=== PATIENT | male | born 1955 | race Caucasian/White ===

== ENCOUNTER 2018-05-25 21:21 | Emergency (ER) | payer BC ==
[~2018-05-25] VITALS: Ht 170.2 cm; Wt 99.8 kg
[~2018-05-25 21:21] MED LIST: ASPI-482 PO; DAPA5TAB PO; METF500T PO; METF500T16 PO; OMEG1CAP6 PO; insulin pump; lisinopril
[2018-05-25 21:30] VITALS: BP 127/77
--- NOTE | 2018-05-25 21:32 | ED.ADGEN ---
Past History Past Medical History: Diabetes, Gallstones, Hypertension Past Surgical History: Cholecystectomy, Other Alcohol Use: Occasionally Drug Use: None Adult General Chief Complaint Chief Complaint ".. I was playing dodge ball with kids... and I felt something tear in my Rt. 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 Pt. is able to do straight leg lift off right leg however has edema in pain with any movement of right knee. Patient does have crepitation with range of motion. Patient distal neurovascular is equal to his left foot. No other upper leg or lower leg injury. Pt. does have a history of diabetes. Patient normally follows Dr. Estrada. Review of Systems Review of Systems Constitutional: Denies fever or chills [] Eyes: Denies change in visual acuity, redness, or eye pain [] HENT: Denies nasal congestion or sore throat [] Respiratory: Denies cough or shortness of breath [] Cardiovascular: No additional information not addressed in HPI [] GI: Denies abdominal pain, nausea, vomiting, bloody stools or diarrhea [] : Denies dysuria or hematuria [] Musculoskeletal: Denies back pain or joint pain []except findings in right hand per history of present illness Integument: Denies rash or skin lesions [] Neurologic: Denies headache, focal weakness or sensory changes [] Endocrine: Denies polyuria or polydipsia [] All other systems were reviewed and found to be within normal limits, except as documented in this note. Family History Family History DM Current Medications Current Medications Current Medications Medications (Trade) Dose Ordered Sig/Sherwin Start Time Stop Time Status Last Admin Dose Admin Hydrocodone Bitartrate/ Ibuprofen (Vicoprofen 7.5-200) 2 tab 1X ONCE 05/25/18 22:00 05/25/18 22:01 DC 05/25/18 23:28 2 TAB Allergies Allergies Allergies Coded Allergies Type Severity Reaction Last Updated Verified No Known Drug Allergies 05/25/18 No Physical Exam Physical Exam Constitutional: Moderately acute distress, non-toxic appearance. [] HENT: Normocephalic, atraumatic, bilateral external ears normal, oropharynx moist, no oral exudates, nose normal. [] Eyes: PERRLA, EOMI, conjunctiva normal, no discharge. [] Neck: Normal range of motion, no tenderness, supple, no stridor. [] Cardiovascular:Heart rate regular rhythm, no murmur [] Lungs & Thorax: Bilateral breath sounds clear to auscultation [] Abdomen: Bowel sounds normal, soft, no tenderness, no masses, no pulsatile masses. Obese. Old scar. Skin: Warm, dry, no erythema, no rash. [] Back: No tenderness, no CVA tenderness. [] Extremities: Right knee tenderness, no cyanosis, no clubbing, ROM with crepitation limited because of pain in right knee, right knee edema. [] Neurologic: Alert and oriented X 3, normal motor function, normal sensory function, no focal deficits noted. [] Psychologic: Affect anxious, judgement normal, mood normal. [] Current Patient Data Vital Signs Vital Signs Date Time Temp Pulse Resp B/P (MAP) Pulse Ox O2 Delivery O2 Flow Rate FiO2 05/25/18 21:30 98.2 107 20 96 Room Air EKG EKG [] Radiology/Procedures Radiology/Procedures I interpretation of right knee film shows no obvious fracture dislocation. There is edema.[] Course & Med Decision Making Course & Med Decision Making Pertinent Labs and Imaging studies reviewed. (See chart for details). Patient to use ice packs as needed for the next 2 or 3 days. Rest. Wear splint and use crutches. Will need follow-up orthopedics. Recommend follow-up primary care. Patient may need arthroscopic as well as MRI to fully evaluate his right knee dysfunction. Tylenol and ibuprofen for pain for marked pain may use Vicoprofen up 4 times a day. Patient return if any concerns. [] Final Impression Final Impression 1. Cartilage Injury Rt. Knee 2. Hx. of DM[] Dragon Disclaimer Dragon Disclaimer This electronic medical record was generated, in whole or in part, using a voice recognition dictation system. Discharge Summary Visit Information Final Diagnosis Problems Medical Problems: (1) Knee cartilage, torn, right Status: Acute Brief Hospital Course Allergies Allergies Coded Allergies Type Severity Reaction Last Updated Verified No Known Drug Allergies 05/25/18 No Vital Signs Vital Signs Date Time Temp Pulse Resp B/P (MAP) Pulse Ox O2 Delivery O2 Flow Rate FiO2 05/25/18 21:30 98.2 107 20 96 Room Air Brief Hospital Course Mr. Velasquez is a 62 old male who presented with Rt. Knee Injury. Discharge Information Condition at Discharge: Improved Dischare Medications Current Medications Hydrocodone Bitartrate/ Ibuprofen (Vicoprofen 7.5-200) 2 tab 1X ONCE PO Last administered on 05/25/18at 23:28; Admin Dose 2 TAB; Start 05/25/18 at 22:00; Stop 05/25/18 at 22:01; Status DC Active Scripts Active Hydrocodone-Ibuprofen 7.5-200 (Hydrocodone/Ibuprofen) 1 Each Tablet 1 Tab PO PRN Q6HRS PRN Reported Farxiga (Dapagliflozin Propanediol) 5 Mg Tablet 5 Mg PO DAILY [lisinopril] [insulin pump] Fish Oil 1,000 Mg Capsule ([place]-3 Fatty Acids/Fish Oil) 1 Each Capsule 1 Each PO Aspir 81 (Aspirin) 81 Mg Tablet.dr 1 Tab PO DAILY Glucophage (Metformin Hcl) 500 Mg Tablet 1 Tab PO BID Discharge Summary Visit Information Final Diagnosis Problems Medical Problems: (1) Knee cartilage, torn, right Status: Acute Brief Hospital Course Allergies Allergies Coded Allergies Type Severity Reaction Last Updated Verified No Known Drug Allergies 05/25/18 No Vital Signs Vital Signs Date Time Temp Pulse Resp B/P (MAP) Pulse Ox O2 Delivery O2 Flow Rate FiO2 05/25/18 21:30 98.2 107 20 96 Room Air Brief Hospital Course Mr. Velasquez is a 62 old male who presented with Rt. knee injury. Discharge Information Condition at Discharge: Improved, Stable Disposition/Orders: D/C to Home Dischare Medications Current Medications Hydrocodone Bitartrate/ Ibuprofen (Vicoprofen 7.5-200) 2 tab 1X ONCE PO Last administered on 05/25/18at 23:28; Admin Dose 2 TAB; Start 05/25/18 at 22:00; Stop 05/25/18 at 22:01; Status DC Active Scripts Active Hydrocodone-Ibuprofen 7.5-200 (Hydrocodone/Ibuprofen) 1 Each Tablet 1 Tab PO PRN Q6HRS PRN Reported Farxiga (Dapagliflozin Propanediol) 5 Mg Tablet 5 Mg PO DAILY [lisinopril] [insulin pump] Fish Oil 1,000 Mg Capsule ([place]-3 Fatty Acids/Fish Oil) 1 Each Capsule 1 Each PO Aspir 81 (Aspirin) 81 Mg Tablet.dr 1 Tab PO DAILY Glucophage (Metformin Hcl) 500 Mg Tablet 1 Tab PO BID Dragon Disclaimer This chart was dictated in whole or in part using Voice Recognition software in a busy, high-work load, and often noisy Emergency Department environment. It may contain unintended and wholly unrecognized errors or omissions. Dragon Disclaimer This chart was dictated in whole or in part using Voice Recognition software in a busy, high-work load, and often noisy Emergency Department environment. It may contain unintended and wholly unrecognized errors or omissions. TEQUILA ORTIZ MD May 25, 2018 21:32
[2018-05-25] MEDS ORDERED: HYDROcodon/IBUPROFEN 7.5/200MG 1 TAB TABLET PO ONE (22:00)
--- NOTE | 2018-05-25 22:43 | RAD ---
Indication:RIGHT KNEE INJURY PLAYING DODGE BALL, TWISTED AND FELT A POP TECHNIQUE: 3 views of the right knee COMPARISON:None FINDINGS/ impression: No acute fracture or dislocation. No arthritic changes. No joint effusion. Electronically signed by: Dwayne Chacon DO (05/25/2018 10:40 PM) [facility] [id number]
[2018-05-25] MEDS ORDERED: HYDR-1179 PO (22:51)
== END 2018-05-25 23:45 | disposition home or self-care (01) ==
LOC: ER 21:21
DX: S83.8X1A Sprain of other specified parts of right knee, initial encounter (principal); E11.9 Type 2 diabetes mellitus without complications; I10 Essential (primary) hypertension; X50.9XXA Other and unspecified overexertion or strenuous movements or postures, initial encounter; Y93.6A Activity, physical games generally associated with school recess, summer camp and children; Y92.89 Other specified places as the place of occurrence of the external cause; Y99.8 Other external cause status
CPT/HCPCS: 73564; 99284